=== PATIENT | male | born 1990 | race Caucasian/White ===

== ENCOUNTER 2017-02-14 15:39 | Inpatient (IN) | payer OTHER ==
[~2017-02-14] VITALS: Ht 177.8 cm; Wt 86.3 kg
[2017-02-14 15:46] VITALS: Ht 177.8 cm; Wt 86.3 kg
[2017-02-14] MEDS ORDERED: LORAZEPAM 2 MG/ML 1 ML VIAL IV STA (17:04)
[2017-02-14] MEDS ORDERED: LORAZEPAM 2 MG/ML 1 ML VIAL ONE (17:06)
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
[2017-02-14] MEDS ORDERED: SODIUM CHLORIDE 0.9% 1000ML 1,000 ML IV ONE (17:15)
[2017-02-14] MEDS ORDERED: LEVETIRACETAM IV 1,000 MG in DEXTROSE 5% 100ML 100 ML IV ONE (17:15)
[2017-02-14 17:27] LABS: HEMATOCRIT 50.4 % (42-52); MEAN CELL VOLUME 95.5 fL (80-100); MEAN CORPUSCULAR HEMOGLOBIN 32.2 pg (25-34); MEAN CORPUSCULAR HGB CONC 33.7 g/dl (32-36); MEAN PLATELET VOLUME 9.6 fL (7.4-10.4); PLATELET COUNT 344 K/uL (130-400); RED BLOOD COUNT 5.28 M/uL (4.7-6.1); WHITE BLOOD COUNT 25.44 K/uL (4.8-10.8)
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
[2017-02-14 17:44] LABS: BASO % 0.1 %; BASO ABS # 0.02 K/uL (0-0.2); COMPLETE YES; IG% 0.5 %; LYMPH % 4.8 %; LYMPH ABS # 1.23 K/uL (1.2-3.4); MONO % 8.9 %; NEUT % 85.7 %
[2017-02-14 17:48] LABS: BUN/CREATININE RATIO 11.8 (10-20); CALCIUM 9.2 mg/dl (8.5-10.1); CREATININE 1.39 mg/dl (0.60-1.40); POTASSIUM 3.5 mmol/L (3.5-5.1)
--- NOTE | 2017-02-14 18:39 | DIAGNOSTIC IMAGING REPORT ---
LEFT SHOULDER 3 VIEWS HISTORY: Left shoulder pain. trauma, dislocation COMPARISON: None. FINDINGS: There is a left anterior shoulder dislocation. No definite fractures. The left clavicle is intact. Soft tissues are unremarkable. No radiopaque foreign bodies. IMPRESSION: Left anterior shoulder dislocation. Electronically signed by: Daryl Kunz M.D. 02/14/2017 6:38 PM Dictated Date/Time: 02/14/2017 6:37 PM
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
[2017-02-14] MEDS ORDERED: FENTANYL CITRATE INJ 50 MCG/1 ML 2 ML VIAL IV ONE (18:45)
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
--- NOTE | 2017-02-14 19:38 | DIAGNOSTIC IMAGING REPORT ---
L SHOULDER MIN 2 VIEWS ROUTINE CLINICAL HISTORY: Dislocation status post reduction COMPARISON: 02/14/2017 DISCUSSION: There has been interval reduction of the previously identified anterior dislocation. There is a Hill-Sachs deformity of the humeral head. IMPRESSION: 1. Hill-Sachs deformity 2. Interval reduction of the previously identified dislocation Electronically signed by: Merritt Johnson M.D. 02/14/2017 7:37 PM Dictated Date/Time: 02/14/2017 7:36 PM
[2017-02-14] MEDS ORDERED: NALOXONE HCL 0.4 MG/1 ML VIAL/CARP IV STA (20:50)
[2017-02-14] MEDS ORDERED: ACETAMINOPHEN 325 MG TAB PO PRN (21:15)
[2017-02-14] MEDS ORDERED: ONDANSETRON INJ 2 MG/ML 2 ML VIAL IV PRN (21:15)
[2017-02-14] MEDS ORDERED: LORAZEPAM 2 MG/ML 1 ML VIAL IV PRN (21:30)
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
[2017-02-14 21:39] LABS: ALLEN TEST POS (POS); ARTERIAL BLD GAS O2 SATURATION 97.2 % (90-95); ARTERIAL BLOOD GAS BASE EXCESS -1.9 mEq/L (-9-1.8); ARTERIAL BLOOD GAS HCO3 22 mmol/L (19-24); ARTERIAL BLOOD GAS PO2 94 mm/Hg (80-95); O2 ADMINISTRATION 3 LITERS
[2017-02-14 22:11] LABS: URINE APPEARANCE CLOUDY (CLEAR); URINE BILIRUBIN NEG (NEG); URINE COLOR YELLOW; URINE EPITHELIAL CELL AUTO 0-5 /lpf (0-5); URINE NITRITE NEG (NEG); URINE SPECIFIC GRAVITY 1.021 (1.000-1.030); UROBILINOGEN NEG (NEG)
[2017-02-14 22:13] LABS: MANUAL MICROSCOPIC REQUIRED? NO; REVIEW REQ? NO
[2017-02-14 22:27] LABS: BENZODIAZEPINE, URINE NEG (NEG); COCAINE,URINE NEG (NEG); PHENCYCLIDINE, URINE NEG (NEG)
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
[2017-02-14] MEDS ORDERED: LORAZEPAM INJ 1 MG in SYRINGE 0.5 ML IV PRN (22:45)
[2017-02-14 22:46] VITALS: BP 136/82; PULSE 94; TEMP 37.6; O2SAT 94
[2017-02-15] VITALS (7 sets, daily range): BP systolic 121–137; BP diastolic 68–79; PULSE 79–98; TEMP 36.9–37.1; O2SAT 96–98
[2017-02-15] MEDS: SODIUM CHLORIDE 0.9% 1000ML 1,000 ML IV SCH ×2 (00:04→11:48)
[2017-02-15] MEDS ORDERED: LEVETIRACETAM IV 750 MG in DEXTROSE 5% 100ML 100 ML IV SCH (05:00)
[2017-02-15 06:45] LABS: HEMATOCRIT 40.9 % (42-52); MEAN CELL VOLUME 93.2 fL (80-100); MEAN CORPUSCULAR HEMOGLOBIN 32.1 pg (25-34); MEAN CORPUSCULAR HGB CONC 34.5 g/dl (32-36); MEAN PLATELET VOLUME 9.5 fL (7.4-10.4); PLATELET COUNT 253 K/uL (130-400); RED BLOOD COUNT 4.39 M/uL (4.7-6.1); WHITE BLOOD COUNT 14.49 K/uL (4.8-10.8)
[2017-02-15 06:52] LABS: BUN/CREATININE RATIO 17.1 (10-20); CALCIUM 8.3 mg/dl (8.5-10.1); CREATININE 0.83 mg/dl (0.60-1.40); POTASSIUM 3.8 mmol/L (3.5-5.1)
--- NOTE | 2017-02-15 09:11 | DIAGNOSTIC IMAGING REPORT ---
L RIBS UNILATERAL WITH PA CHEST CLINICAL HISTORY: Left-sided chest pain. COMPARISON STUDY: Chest 02/14/2017. FINDINGS: The lungs are clear. The heart is normal in size. No pleural effusions. No pneumothorax. Redemonstration of the Hill-Sachs deformity within the left humeral head and a few punctate ossific densities inferior to the left gland nodule consistent with small fracture fragments. An old, healed left clavicle fracture. No acute rib fractures. IMPRESSION: 1. No acute rib fractures. No pneumothorax. 2. No change in the left humeral head Hill-Sachs deformity. Electronically signed by: Daryl Kunz M.D. 02/15/2017 9:10 AM Dictated Date/Time: 02/15/2017 9:07 AM
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
[2017-02-15] MEDS ORDERED: LEVE750T PO (13:50)
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
== END 2017-02-15 14:30 | disposition home or self-care (01) | DRG 101 ==
LOC: C.EDB 15:41 → C.MED 21:14 → ENRESERV 21:30
PROVIDERS: ADMIT Internal Medicine; ATTEND Internal Medicine
PROC: 0RSKXZZ Reposition Left Shoulder Joint, External Approach (ICD-10-PCS; principal; 2017-02-15)
DX: G40.909 Epilepsy, unspecified, not intractable, without status epilepticus (principal); E87.3 Alkalosis; S43.005A Unspecified dislocation of left shoulder joint, initial encounter; V57.0XXA Driver of pick-up truck or van injured in collision with fixed or stationary object in nontraffic accident, initial encounter; Y92.410 Unspecified street and highway as the place of occurrence of the external cause; T42.6X6A Underdosing of other antiepileptic and sedative-hypnotic drugs, initial encounter; R07.89 Other chest pain; Z91.120 Patient's intentional underdosing of medication regimen due to financial hardship; Z72.820 Sleep deprivation